=== PATIENT | female | born 1960 | race Caucasian/White ===

== ENCOUNTER → 2019-05-22 | Day surgery (SDC) | payer OTHER ==
[2019-05-17 16:33] LABS: BASOPHILS % 0.5 % (0.0-1.0); HEMOGLOBIN 12.8 g/dL (12.0-16.0); LYMPHOCYTES # (AUTO) 2.2 (1.0-3.2); LYMPHOCYTES % 30.1 % (18.0-39.1); MEAN CORPUSCULAR VOLUME 84.4 fL (81-99); MONOCYTES # (AUTO) 0.6 (0.2-0.8); MONOCYTES % 8.6 % (4.4-11.3); NEUTROPHILS # (AUTO) 4.5 (2.1-6.9); NEUTROPHILS % 60.4 % (38.7-80.0); PLATELET COUNT 251 x10e3/uL (140-360); RED BLOOD COUNT 4.74 x10e6/uL (3.6-5.1)
[2019-05-17 16:46] LABS: ANION GAP 12.4 mmol/L (8-16); BLOOD UREA NITROGEN 9 mg/dL (7-26); BUN/CREATININE RATIO 11 (6-25); CALCIUM 9.7 mg/dL (8.4-10.2); CARBON DIOXIDE 29 mmol/L (22-29); CHLORIDE 101 mmol/L (98-107); CREATININE, SERUM 0.84 mg/dL (0.57-1.11); EST GLOMERULAR FILTRATION RATE > 60 ML/MIN (60-); GLUCOSE 90 mg/dL (74-118); POTASSIUM 3.4 mmol/L (3.5-5.1); SODIUM 139 mmol/L (136-145)
[~2019-05-22] MED LIST: ACETAMINOPHEN 1000 MG/100 ML 100 ML IV ONE; ALBUTEROL2.5 MG/3 M INH; ATORVASTATIN CA10 MG PO; BREO ELLIPTA INH; BUPIVACAINE HCL 0.5% INJ 30 ML VIAL INJ ONE; CEFAZOLIN SOD 1 GM/NS 50ML 50 ML IV ONE; CEFTIN500 MG PO; DEXAMETHASONE SOD PHOS INJ 4 MG/ML VIAL ONE; FASENRA IM; FENTANYL CITRATE/PF 100MCG/2 ML INJ ONE; FLUOXETINE HCL20 MG PO; FLUTICASONE INH; GLYCOPYRROLATE INJ 1MG/ 5 ML SYR ONE; HYDROMET SYRUP473 ML PO; INCRUSE ELLIPTA INH; KETOROLAC TROMETHAMINE 30 MG/ML VIAL ONE; LEVOTHYROXINE50 MCG PO; LIDOCAINE 2% /EPINEPHRINE 20 ML SDV INJ ONE; LIDOCAINE HCL 2% LOCAL INJ 5 ML SDV VIAL INJ ONE; LORATADINE10 MG PO; LOSARTAN POTASS50 MG PO; METOCLOPRAMIDE HCL 10 MG/2ML VIAL ONE; MIDAZOLAM HCL 2 MG/2 ML VIAL ONE; NASONEX17 GM; NEOSTIGMINE 5 MG/5ML SYR ONE; ONDANSETRON HCL INJ 2MG/ML 2ML 2 MG/ML VIAL ONE; PANTOPRAZOLE SO40 MG PO; PREDNISONE5 M1 PO; PROPOFOL IV EMULSION 10 MG/ML 20 ML VIAL ONE; PROTONIX40 MG PO; PROVENTIL HFA6.7 GM INH; RANITIDINE HCL150 M1 PO; ROPINIROLE HC0.25 MG PO; ROPIVACAINE 0.5% 5 MG/ML 30 ML SDV ONE; SCOPOLAMINE 1.5 MG PATCH ONE; SEVOFLURANE INHAL SOLN 250 ML PEN BTL ONE; SINGULAIR10 MG PO; SUCRALFATE1 GM PO; SYMBICORT 16010.2 GM INH; SYMBICORT 16010.2 GM PO; TRIAMTERENE-HCTZ1 EA PO
--- OUTSIDE RECORDS SUMMARY | 2019-05-22 10:33 | XMS REPORT ---
Author Author [facility] Address Unknown Phone Unavailable Care Team Providers Care Muck Hauler Name Role Phone Unavailable Unavailable Payers Payer Name Policy Type Policy Number Effective Date Expiration Date Problems This patient has no known problems. Allergies, Adverse Reactions, Alerts Allergy Name Allergy Type Status Severity Reaction(s) Onset Date Inactive Date Treating Clinician Comments No Known Allergies DA Active U 2015-04-13 00:00:00 Medications This patient has no known medications.
--- NOTE | 2019-05-22 13:36 | Operative Report ---
DATE OF PROCEDURE: 05/22/2019 SURGEON: Jam Allison MD LUNCH TRUCK OPERATOR: Clarke Faust PA-C. PREOPERATIVE DIAGNOSIS: Right Achilles tendon avulsion. POSTOPERATIVE DIAGNOSIS: Right Achilles tendon avulsion. PROCEDURE: Right Achilles tendon repair. INDICATIONS: The patient is a 58-year-old lady, who has an acute avulsion of her right Achilles tendon. The findings and options were discussed with the patient. She would like to proceed with surgical repair. The risks and benefits were explained. She stated she understood and wished to proceed. PROCEDURE IN DETAIL: The patient was brought to the operating room and placed under general anesthetic. She received a regional block in the holding area. She received prophylactic antibiotics. She was positioned in a floppy lateral position. Her right lower extremity was prepped and draped in a sterile manner. A preoperative time-out was performed. An incision was made over the posterior aspect of the right heel. The distal Achilles tendon avulsion was carefully exposed. The paratenon remained intact. The bony footprint of the Achilles insertion was gently debrided with a periosteal elevator. A FiberWire stitch was then woven in a Krackow type of weave. Both medial and lateral sutures were placed to leave four ends of the stitch protruding from the end of the tendon. These were made sure to be tensioned. Two drill holes were placed in the calcaneal footprint. A Bernstein [employer]hew Achilles tendon avulsion system was used. Two bioabsorbable suture anchors were placed with two of the sutures each. This was tensioned and while the foot was held in a plantar flexed position. Nice opposition of the Achilles tendon was accomplished. The wound was irrigated and closed. Subcuticular Vicryl and nylon stitches were applied. A sterile bandage and a plantar flexed splint were applied. There was no blood loss and all needle and sponge counts were correct. Jam Allison MD DR/HARLEEN /[id number]
[2019-05-22 14:25] VITALS: BP 130/87
== END | disposition home or self-care (01) ==
LOC: OR 10:19
PROVIDERS: ATTEND Specialist
DX: S86.021A Laceration of right Achilles tendon, initial encounter (principal); M19.90 Unspecified osteoarthritis, unspecified site; J45.909 Unspecified asthma, uncomplicated; E03.9 Hypothyroidism, unspecified; K21.9 Gastro-esophageal reflux disease without esophagitis; G47.33 Obstructive sleep apnea (adult) (pediatric); R03.0 Elevated blood-pressure reading, without diagnosis of hypertension; G25.81 Restless legs syndrome; F32.9 Major depressive disorder, single episode, unspecified; X58.XXXA Exposure to other specified factors, initial encounter; Y93.02 Activity, running; Y92.218 Other school as the place of occurrence of the external cause; Y99.0 Civilian activity done for income or pay; Z88.6 Allergy status to analgesic agent; Z68.30 Body mass index [BMI] 30.0-30.9, adult
CPT/HCPCS: 27650; 36415; 80048; 85025; 93005; J0131; J0690; J1100; J1885; J2001 ×2; J2250; J2405; J2704; J2765; J2795; J3010; J3490

== ENCOUNTER → 2021-02-04 | Day surgery (SDC) | payer BC, OTHER ==
[2021-02-02 12:33] LABS: BASOPHILS % 0.4 % (0.0-1.0); EOSINOPHILS # (AUTO) 0.3 (0.0-0.4); EOSINOPHILS % 3.4 % (0.0-6.0); HEMATOCRIT 39.3 % (34.2-44.1); HEMOGLOBIN 12.4 g/dL (12.0-16.0); LYMPHOCYTES # (AUTO) 2.9 (1.0-3.2); LYMPHOCYTES % 30.7 % (18.0-39.1); MEAN CORPUSCULAR HGB CONC 31.6 g/dL (31-35); MEAN CORPUSCULAR VOLUME 82.4 fL (81-99); MONOCYTES # (AUTO) 0.8 (0.2-0.8); MONOCYTES % 8.1 % (4.4-11.3); NEUTROPHILS # (AUTO) 5.3 (2.1-6.9); NEUTROPHILS % 57.2 % (38.7-80.0); PLATELET COUNT 229 x10e3/uL (140-360); RED BLOOD COUNT 4.77 x10e6/uL (3.6-5.1)
[~2021-02-04] MED LIST changes: -ACETAMINOPHEN 1000 MG/100 ML 100 ML IV ONE; -BUPIVACAINE HCL 0.5% INJ 30 ML VIAL INJ ONE; -CEFAZOLIN SOD 1 GM/NS 50ML 50 ML IV ONE; -DEXAMETHASONE SOD PHOS INJ 4 MG/ML VIAL ONE; +FAMOTIDINE20 MG PO; -FENTANYL CITRATE/PF 100MCG/2 ML INJ ONE; -GLYCOPYRROLATE INJ 1MG/ 5 ML SYR ONE; -KETOROLAC TROMETHAMINE 30 MG/ML VIAL ONE; -LIDOCAINE 2% /EPINEPHRINE 20 ML SDV INJ ONE; +MELOXICAM15 MG PO; -MIDAZOLAM HCL 2 MG/2 ML VIAL ONE; -NEOSTIGMINE 5 MG/5ML SYR ONE; -ONDANSETRON HCL INJ 2MG/ML 2ML 2 MG/ML VIAL ONE; +PANTOPRAZOLE 40 MG 10ML VIAL ONE; +POVIDONE IODINE 0.05% 0.05 % ML PO ONE; +PROTONIX20 MG PO; -ROPIVACAINE 0.5% 5 MG/ML 30 ML SDV ONE; -SCOPOLAMINE 1.5 MG PATCH ONE; -SEVOFLURANE INHAL SOLN 250 ML PEN BTL ONE; +SPIRIVA RESPIMAT4 GM INH
[2021-02-04 09:00] VITALS: BP 137/66
== END | disposition home or self-care (01) ==
LOC: OR 06:10
PROVIDERS: ATTEND Internal Medicine Gastroenterology
DX: R13.10 Dysphagia, unspecified (principal); K31.7 Polyp of stomach and duodenum; K29.70 Gastritis, unspecified, without bleeding; K21.9 Gastro-esophageal reflux disease without esophagitis; K44.9 Diaphragmatic hernia without obstruction or gangrene; G47.33 Obstructive sleep apnea (adult) (pediatric); D64.9 Anemia, unspecified; R49.0 Dysphonia; J45.909 Unspecified asthma, uncomplicated; I10 Essential (primary) hypertension; E03.9 Hypothyroidism, unspecified; M41.9 Scoliosis, unspecified; F32.9 Major depressive disorder, single episode, unspecified; Z88.6 Allergy status to analgesic agent; Z01.810 Encounter for preprocedural cardiovascular examination; Z01.812 Encounter for preprocedural laboratory examination; Z20.822 Contact with and (suspected) exposure to COVID-19; Z68.32 Body mass index [BMI] 32.0-32.9, adult; Z87.01 Personal history of pneumonia (recurrent); Z86.16 Personal history of COVID-19
CPT/HCPCS: 36415; 43239; 43450; 85025; 93005; C9113; J2001; J2704; J2765; U0002

== ENCOUNTER → 2022-03-18 | Outpatient (CLI) | payer BC ==
[~2022-03-18] MED LIST changes: +DIATRIZOATE MEGL/DIATRIZOA SOD 30 ML BTL PO ONE; +IOPAMIDOL 370 MG/ML 100 ML INFUS..BTL INJ ONE; -LIDOCAINE HCL 2% LOCAL INJ 5 ML SDV VIAL INJ ONE; -METOCLOPRAMIDE HCL 10 MG/2ML VIAL ONE; -PANTOPRAZOLE 40 MG 10ML VIAL ONE; -POVIDONE IODINE 0.05% 0.05 % ML PO ONE; -PROPOFOL IV EMULSION 10 MG/ML 20 ML VIAL ONE
[2022-03-18 09:03] LABS: CREATININE, SERUM 0.87 mg/dL (0.57-1.11)
== END ==
LOC: CT 07:30
PROVIDERS: ATTEND Internal Medicine Gastroenterology
DX: R10.9 Unspecified abdominal pain (principal)
CPT/HCPCS: 36415; 74177; 82565; 84520; Q9967; Q9963

== ENCOUNTER → 2024-04-06 | Day surgery (SDC) | payer BC ==
[2024-04-03 15:04] LABS: BASOPHILS % 0.3 % (0.0-1.0); HEMATOCRIT 35.2 % (34.2-44.1); HEMOGLOBIN 11.3 g/dL (12.0-16.0); LYMPHOCYTES # (AUTO) 2.8 (1.0-3.2); LYMPHOCYTES % 31.8 % (18.0-39.1); MEAN CORPUSCULAR HGB CONC 32.1 g/dL (31-35); MEAN CORPUSCULAR VOLUME 81.1 fL (81-99); MONOCYTES # (AUTO) 0.8 (0.2-0.8); MONOCYTES % 9.7 % (4.4-11.3); PLATELET COUNT 302 x10e3/uL (140-360); RED BLOOD COUNT 4.34 x10e6/uL (3.6-5.1); RED CELL DISTRIBUTION WIDTH 14.1 % (11.7-14.4); WHITE BLOOD COUNT 8.68 x10e3/uL (4.8-10.8)
[~2024-04-06] MED LIST changes: +BREO ELLIPTA 21 EACH INH; +CARAFATE1 GM PO; +CLARITIN10 MG PO; +CYMBALTA30 MG PO; -DIATRIZOATE MEGL/DIATRIZOA SOD 30 ML BTL PO ONE; +FASENRA30 MG/1 ML; +FENTANYL CITRATE/PF 100MCG/2 ML INJ ONE; +FLONASE ALLERG9.9 ML INH; +GLUCAGON FOR INJ 1 MG VIAL ONE; +HYDRALAZINE HCL 20 MG/ML VIAL ONE; +HYOSCYAMINE SULFATE 0.5 MG/ML INJ ONE; +INCRUSE ELLI62.5 MCG INH; -IOPAMIDOL 370 MG/ML 100 ML INFUS..BTL INJ ONE; +LABETALOL HCL 5 MG/ML 20ML VIAL ONE; +LIDOCAINE HCL 2% LOCAL INJ 5 ML SDV VIAL INJ ONE; +LOSARTAN POTASS25 MG PO; +PROAIR DIGIHAL90 MCG INH; +PROPOFOL IV EMULSION 10 MG/ML 20 ML VIAL ONE; +VITAMIN D3250 MC1 PO
[2024-04-06] MEDS: LACTATED RINGER'S 1,000 ML ONE (08:30)
[2024-04-06 11:45] VITALS: TEMP 97.7
[2024-04-06 12:15] VITALS: BP 131/87; PULSE 100; RESP 18; O2SAT 100
[2024-04-06] MEDS: ONDANSETRON HCL INJ 2MG/ML 2ML 2 MG/ML VIAL ONE (12:16)
== END | disposition home or self-care (01) ==
LOC: OR 06:00
PROVIDERS: ATTEND Internal Medicine Gastroenterology
DX: Z09 Encounter for follow-up examination after completed treatment for conditions other than malignant neoplasm (principal); K63.5 Polyp of colon; G47.33 Obstructive sleep apnea (adult) (pediatric); I10 Essential (primary) hypertension; J45.909 Unspecified asthma, uncomplicated; M19.90 Unspecified osteoarthritis, unspecified site; E03.9 Hypothyroidism, unspecified; K21.9 Gastro-esophageal reflux disease without esophagitis; F32.A Depression, unspecified; Z88.6 Allergy status to analgesic agent; Z01.812 Encounter for preprocedural laboratory examination; Z79.899 Other long term (current) drug therapy
CPT/HCPCS: 36415; 45380; 85025; J0360; J1610; J1980; J2001; J2405; J2704; J3010; J3490; J7121; 45385

== ENCOUNTER → 2025-06-23 | Outpatient (REF) | payer BC ==
[~2025-06-23] MED LIST changes: -FENTANYL CITRATE/PF 100MCG/2 ML INJ ONE; -GLUCAGON FOR INJ 1 MG VIAL ONE; -HYDRALAZINE HCL 20 MG/ML VIAL ONE; -HYOSCYAMINE SULFATE 0.5 MG/ML INJ ONE; -LABETALOL HCL 5 MG/ML 20ML VIAL ONE; -LIDOCAINE HCL 2% LOCAL INJ 5 ML SDV VIAL INJ ONE; -PROPOFOL IV EMULSION 10 MG/ML 20 ML VIAL ONE
== END ==
LOC: DX 08:12
PROVIDERS: ATTEND Nurse Practitioner
DX: D50.8 Other iron deficiency anemias (principal)
CPT/HCPCS: 74250